=== PATIENT | male | born 1955 | race Caucasian/White ===

== ENCOUNTER 2017-05-04 12:20 | Emergency (ER) | payer BC, MEDICAID ==
[2017-05-04] MEDS ORDERED: OLANZapine 10 MG VIAL IM ONE (13:11)
[2017-05-04] MEDS ORDERED: WATER FOR INJECTION,STERILE 10 ML ONE (13:11)
--- NOTE | 2017-05-04 13:52 | ED Physician Documentation ---
PD HPI ABD PAIN - Stated complaint Stated Complaint: WEAKNESS/VOMITING - Chief complaint Chief Complaint: General - History obtained from History obtained from: Patient - History of Present Illness Timing - onset: How many hours ago (2-3), Today Timing - duration: Hours Timing - details: Abrupt onset, Still present Quality: Cramping, Aching, Pain Location: Epigastric Radiation: Chest. No: Lower back, Left flank, Right flank Improved by: No: Vomiting Worsened by: No: Breathing, Palpation Associated symptoms: Nausea, Vomiting. No: Fever, Hematemesis, Diarrhea, Melena , Near syncope / syncope Similar symptoms before: Has not had sx before Recently seen: Not recently seen Review of Systems Constitutional: denies: Fever, Chills Nose: denies: Rhinorrhea / runny nose, Congestion Throat: denies: Sore throat Cardiac: denies: Palpitations, Pedal edema, Calf pain Respiratory: denies: Dyspnea, Cough, Wheezing GI: reports: Abdominal Pain, Nausea, Vomiting. denies: Diarrhea, Hematemesis, Bloody / black stool : denies: Dysuria, Frequency Musculoskeletal: denies: Neck pain, Back pain, Extremity swelling Neurologic: reports: Generalized weakness. denies: Focal weakness, Numbness, Near syncope Endocrine: denies: Weight loss PD PAST MEDICAL HISTORY - Past Medical History Past Medical History: Yes Cardiovascular: Hypertension - Past Surgical History Past Surgical History: Yes - Present Medications Home Medications: Ambulatory Orders Medication Instructions Recorded Confirmed Hydrochlorothiazide 25 mg PO DAILY 05/04/17 05/04/17 Ondansetron Odt [Zofran] 4 mg TL Q6H PRN #15 tablet 05/04/17 - Allergies Allergies/Adverse Reactions: Allergies Allergy/AdvReac Type Severity Reaction Status Date / Time No Known Drug Allergies Allergy Verified 05/04/17 12:38 - Living Situation Living Situation: reports: With spouse/s.o. Living Arrangement: reports: At home - Social History Does the pt smoke?: No Smoking Status: Never smoker Does the pt drink ETOH?: No Does the pt have substance abuse?: No - Family History Family history: reports: Non contributory PD ED PE NORMAL - Vitals Vital signs reviewed: Yes - General General: Alert and oriented X 3, Well developed/nourished, Other (appears very pale, diaphoretic, active emesis and dry heaving. ) - HEENT HEENT: PERRL (nonicteric), Moist mucous membranes, Pharynx benign - Neck Neck: Supple, no meningeal sign, No adenopathy - Cardiac Cardiac: RRR, No murmur - Respiratory Respiratory: Clear bilaterally - Abdomen Abdomen: Normal bowel sounds, Soft, No organomegaly, Other (tender upper abd/ epigastric area with some distension. ) - Male Male : Deferred - Rectal Rectal: Deferred - Back Back: No CVA TTP - Derm Derm: No: Warm and dry (he is pale and diaphoretic.) - Extremities Extremities: No edema, No calf tenderness / cord - Neuro Neuro: Alert and oriented X 3, No motor deficit, Normal speech - Psych Psych: Normal mood, Normal affect Results - Vitals Vitals: Oxygen O2 Source Room air - EKG (time done) 15:04 Rate: Rate (enter#) (82) Intervals: LBBB Ischemia: Non specific changes Compare to prior EKG: Old EKG unavailable - Labs Labs: Laboratory Tests 05/04/17 05/04/17 05/04/17 13:55 13:55 13:55 WBC 14.6 H RBC 5.55 Hgb 16.6 Hct 49.6 MCV 89.4 MCH 29.8 MCHC 33.4 RDW 13.3 Plt Count 231 MPV 9.0 Neut # 12.1 H Lymph # 1.9 Lipscomb # 0.6 Eos # 0.1 Baso # 0.0 Absolute Nucleated RBC 0.00 Nucleated RBCs 0.0 Sodium 138 Potassium 3.6 Chloride 101 Carbon Dioxide 24 Anion Gap 13.0 BUN 16 Creatinine 1.1 Estimated GFR (MDRD) 68 L Glucose 167 H Calcium 9.2 Total Bilirubin 1.5 H AST 31 ALT 39 Alkaline Phosphatase 76 Troponin I < 0.04 Total Protein 7.8 Albumin 5.0 Globulin 2.8 Albumin/Globulin Ratio 1.8 Lipase 95 H - Rads (name of study) abd CT Radiology: Prelim report reviewed (No acute process. Diverticulosis without inflammatory changes in sigmoid area. GB normal. ) PD MEDICAL DECISION MAKING - ED course Complexity details: reviewed results, re-evaluated patient (feeling much betteer with meds. Remarkably better from how bad he looked when he came in. He feels good, took PO well here and "wants to go home". Consider partial obstruction or biliary colic though CT normal. ECG and Troponin are normal after hours of symptoms. Recheck abd benign and not tender. ), considered differential, d/w patient Departure - Departure Disposition: 01 Home, Self Care Clinical Impression: Upper abdominal pain Nausea and vomiting Qualifiers: Vomiting type: unspecified Vomiting Intractability: intractable Qualified Code( s): R11.2 - Nausea with vomiting, unspecified Condition: Stable Record reviewed to determine appropriate education?: Yes Instructions: ED Nausea Vomiting Prescriptions: Ondansetron Odt [Zofran] 4 mg TL Q6H PRN #15 tablet PRN Reason: Nausea / Vomiting Comments: Drink lots of fluids and soft and bland food for a day or 2. Antacid if needed for heartburn or indigestion. I do not know the cause of your episode at this point so presume a food related or viral illness. However recheck if repetitive symptoms. If you have some mild nausea later than you can use ondansetron as needed. Return if worse again. Discharge Date/Time: 05/04/17 17:58
[2017-05-04] MEDS ORDERED: ONDANSETRON 4 MG/2 ML VIAL ONE ×2 (14:19→15:59)
[2017-05-04] MEDS: ONDANSETRON 4 MG/2 ML VIAL IVP STA ×2 (14:24→16:55)
[2017-05-04 14:31] LABS: BASOPHILS % (AUTO) 0.3 %; EOSINOPHILS # (AUTO) 0.1 10^3/uL (0.0-0.7); EOSINOPHILS % (AUTO) 0.7 %; HCT - HEMATOCRIT 49.6 % (42.0-52.0); HGB - HEMOGLOBIN 16.6 g/dL (14.0-18.0); LYMPHOCYTES # (AUTO) 1.9 10^3/uL (1.5-3.5); LYMPHOCYTES % (AUTO) 12.8 %; MEAN CORPUSCULAR HEMOGLOBIN 29.8 pg (27.0-31.0); MEAN CORPUSCULAR HGB CONC 33.4 g/dL (32.0-36.0); MEAN CORPUSCULAR VOLUME 89.4 fL (80.0-94.0); MONOCYTES # (AUTO) 0.6 10^3/uL (0.0-1.0); MONOCYTES % (AUTO) 3.8 %; NEUTROPHILS # (AUTO) 12.1 10^3/uL (1.5-6.6); NEUTROPHILS % (AUTO) 82.4 %; RED BLOOD COUNT 5.55 10^6/uL (4.70-6.10); RED CELL DISTRIBUTION WIDTH 13.3 % (12.0-15.0); UNCORRECTED WHITE BLOOD COUNT 14.6 x10^3/uL; WHITE BLOOD COUNT 14.6 x10^3/uL (4.8-10.8)
[2017-05-04 14:48] LABS: ALBUMIN/GLOBULIN RATIO 1.8 (1.0-2.2); BILIRUBIN,TOTAL 1.5 mg/dL (0.2-1.0); CALCIUM 9.2 mg/dL (8.5-10.3); CREATININE 1.1 mg/dL (0.6-1.2); POTASSIUM 3.6 mmol/L (3.5-5.0); TOTAL PROTEIN 7.8 g/dL (6.7-8.2)
[2017-05-04] MEDS ORDERED: METOCLOPRAMIDE 10 MG/2 ML VIAL ONE (14:57)
[2017-05-04] MEDS ORDERED: diphenhydrAMINE INJ 50 MG/ML VIAL ONE (14:57)
[2017-05-04] MEDS: diphenhydrAMINE INJ 50 MG/ML VIAL IVP STA (14:59)
[2017-05-04] MEDS: METOCLOPRAMIDE 10 MG/2 ML VIAL IVP STA (14:59)
[2017-05-04] MEDS: IOPAMIDOL-300 100 ML VIAL IVP ONE (15:44)
[2017-05-04] MEDS: FAMOTIDINE 20 MG/50 ML 50 ML IV ONE (15:59)
--- NOTE | 2017-05-04 15:59 | CT Preliminary Report ---
Exam: CT Abdomen/Pelvis W/ IMPRESSION: 1. Diverticulosis without significant inflammatory changes. 2. Normal appendix [facility] SITE ID: [id number]
[2017-05-04] MEDS ORDERED: FAMOTIDINE 20 MG/50 ML 50 ML IV ONE (16:00)
--- NOTE | 2017-05-04 16:02 | CT Report ---
EXAM: CT ABDOMEN AND PELVIS EXAM DATE: 05/04/2017 03:40 PM. CLINICAL HISTORY: Vomiting and abd pain this morning. COMPARISONS: 08/20/2009. TECHNIQUE: Routine helical CT imaging was performed through the abdomen and pelvis. IV contrast: 100 cc Isovue-300. Enteric contrast: No. Reconstructions: Coronal and sagittal. In accordance with CT protocol optimization, one or more of the following dose reduction techniques w ere utilized for this exam: automated exposure control, adjustment of mA and/or KV based on patient s ize, or use of iterative reconstructive technique. FINDINGS: Lung Bases: Bibasilar atelectasis or scarring Liver: Subcentimeter density right lobe unchanged Gallbladder/Bile Ducts: Unremarkable. Spleen: Normal. Pancreas: Normal. Adrenal Glands: Normal. Kidneys: Right kidney subcentimeter densities too small to characterize. Left kidney unremarkable Peritoneal Cavity/Bowel: Diverticulosis most prominent in the sigmoid colon No free fluid, free air o r adenopathy. No masses or acute inflammatory process. The appendix is well visualized and normal. Pelvic Organs: Normal. The bladder and visualized pelvic organs are within normal limits. Vasculature: No aneurysms or other significant abnormality. Bones: EGD spine. Grade 1 retrolisthesis L4 and L5. DJD SI joints Other: None. IMPRESSION: 1. Diverticulosis without significant inflammatory changes. 2. Normal appendix [facility] Referring Provider Line: [phone] SITE ID: [id number]
[2017-05-04 17:42] VITALS: BP 123/83
== END 2017-05-04 17:58 | disposition home or self-care (01) ==
LOC: ED 12:20
DX: R10.13 Epigastric pain (principal); R11.2 Nausea with vomiting, unspecified; I44.7 Left bundle-branch block, unspecified; R94.31 Abnormal electrocardiogram [ECG] [EKG]; I10 Essential (primary) hypertension
CPT/HCPCS: 36415; 74177; 80053; 83690; 84484; 85025; 93005; 96365; 96375; 99284; Q9967